=== PATIENT | male | born 1940 | race Caucasian/White ===

== ENCOUNTER 2023-12-23 16:06 | Inpatient (IN) ==
[2023-12-23 17:03] LABS: Basophils # (Auto) 0.04 K/mcL (0.00-0.30); Basophils % (Auto) 0.5 % (0.0-2.0); Eosinophils # (Auto) 0.03 K/mcL (0.00-0.70); Eosinophils % (Auto) 0.4 % (0.0-7.0); Hematocrit 37.6 % (40.1-51.0); Hemoglobin 12.4 g/dL (13.7-17.5); Lymphocytes # (Auto) 0.69 K/mcL (1.50-4.80); Lymphocytes % (Auto) 9.2 % (15.5-49.0); Mean Cell Volume 99.2 fL (80.0-100.0); Mean Platelet Volume 8.5 fL (8.8-12.5); Monocytes # (Auto) 0.35 K/mcL (0.10-0.90); Monocytes % (Auto) 4.7 % (1.0-12.0); Neutrophils % (Auto) 84.9 % (38.0-78.0); Platelet Count 195 K/mcL (140-440); RBC 3.79 M/mcL (4.63-6.08); Red Cell Distribution Width 13.4 % (11.5-14.5); WBC 7.5 K/mcL (4.5-11.0)
[2023-12-23 17:41] LABS: ALT/SGPT < 5 U/L (0-40); AST/SGOT 18 U/L (<40); Albumin 4.2 gm/dL (3.2-5.2); Albumin/Globulin Ratio 1.8 (1.0-2.3); Alkaline Phosphatase 57 U/L (39-117); Bilirubin,Total 0.5 mg/dL (0.1-1.0); Blood Urea Nitrogen 41 mg/dL (8-23); Carbon Dioxide 22 mmol/L (22-30); Chloride 105 mmol/L (96-108); Globulin 2.4 gm/dL (2.2-3.7); Glomerular Filtration Rate 36; Glucose 104 mg/dL (70-105)
[2023-12-23] MEDS: fentaNYL 100 MCG/2 ML VIAL IV PRN (17:45)
[2023-12-23 18:27] LABS: INR 1.1 (0.9-1.1); Prothrombin Time 14.5 sec (11.9-14.5)
[2023-12-23] MEDS ORDERED: hydrALAZINE 20 MG/ML VIAL IV PRN (18:45)
[2023-12-23] MEDS ORDERED: ONDANSETRON 4 MG/2 ML VIAL IV PRN (18:45)
[2023-12-23] MEDS ORDERED: IPRATROPIUM/ALBUTEROL 3 ML AMPUL.NEB NEB PRN (18:45)
[2023-12-23] MEDS: HYDROmorphone 1 MG/ML SYRINGE IV PRN (18:52)
[2023-12-23] MEDS: 0.9 % SODIUM CHLORIDE 1,000 ML IV SCH (20:57)
[2023-12-23] MEDS: DOCUSATE SODIUM 100 MG CAPSULE PO SCH (21:02)
[2023-12-23] MEDS: SENNOSIDES 1 TABLET PO SCH (21:02)
[2023-12-23] MEDS: ceFAZolin 2 GM in DEXTROSE 5% IN WATER 50 ML IV SCH (21:02)
[2023-12-23] MEDS: 0.9 % SODIUM CHLORIDE 10 ML SYRINGE IV SCH (21:03)
[2023-12-23 22:44] LABS: Appearance,Urine Clear (Clear); Bacteria,Urine 0 /hpf (0); Bilirubin,Urine Negative (Negative); Color,Urine Yellow; Culture Indicated,Urine No; Glucose,Urine (UA) Negative (Negative); Ketones,Urine Negative (Negative); Leukocyte Esterase,Urine Trace /uL (Negative); Nitrate,Urine Negative (Negative); Protein,Urine Negative (Negative); Specific Gravity,Urine 1.015 (1.000-1.035); Urine Blood Negative ery/mcL (Negative); Urine Hyaline Cast 2 /lph (0-2); Urine RBC 1 /hpf (0-3); Urine Squamous Epithelial Cell 0 /hpf (0-4); Urine WBC 1 /hpf (0-4); Urobilinogen,Urine Normal
[2023-12-23] MEDS: traZODone HCL 50 MG TABLET PO PRN (23:24)
[2023-12-24 05:44] LABS: Basophils # (Auto) 0.03 K/mcL (0.00-0.30); Basophils % (Auto) 0.3 % (0.0-2.0); Eosinophils # (Auto) 0.05 K/mcL (0.00-0.70); Eosinophils % (Auto) 0.6 % (0.0-7.0); Hematocrit 37.1 % (40.1-51.0); Lymphocytes % (Auto) 8.1 % (15.5-49.0); Mean Cell Volume 100.8 fL (80.0-100.0); Mean Corpuscular HGB Conc 32.3 g/dL (31.0-36.0); Mean Platelet Volume 8.3 fL (8.8-12.5); Monocytes # (Auto) 0.66 K/mcL (0.10-0.90); Monocytes % (Auto) 7.7 % (1.0-12.0); Neutrophils % (Auto) 83.1 % (38.0-78.0); Platelet Count 186 K/mcL (140-440); RBC 3.68 M/mcL (4.63-6.08); Red Cell Distribution Width 13.4 % (11.5-14.5); WBC 8.6 K/mcL (4.5-11.0)
[2023-12-24] MEDS: oxyCODONE IR 5 MG TABLET PO PRN (06:00)
[2023-12-24 06:28] LABS: ALT/SGPT 6 U/L (<40); AST/SGOT 17 U/L (<40); Albumin/Globulin Ratio 1.7 (1.0-2.3); Alkaline Phosphatase 57 U/L (39-117); Bilirubin,Total 0.4 mg/dL (0.1-1.0); Blood Urea Nitrogen 36 mg/dL (8-23); Calcium 8.9 mg/dL (8.6-10.4); Carbon Dioxide 22 mmol/L (22-30); Chloride 104 mmol/L (96-108); Globulin 2.3 gm/dL (2.2-3.7); Glomerular Filtration Rate 39; Glucose 105 mg/dL (70-105)
[2023-12-24] MEDS: HYDROmorphone 1 MG/ML SYRINGE IV PRN (11:06)
[2023-12-24] MEDS ORDERED: CARBIDOPA LEVODOPA PO SCH (15:00)
[2023-12-24] MEDS ORDERED: SERTRALINE 50 MG TABLET PO SCH (15:00)
[2023-12-24] MEDS ORDERED: DEXAMETHASONE 10 MG/ML VIAL ONE (15:40)
[2023-12-24] MEDS ORDERED: PROPOFOL 200 MG/20 ML VIAL IV ONE (15:40)
[2023-12-24] MEDS ORDERED: ONDANSETRON 4 MG/2 ML VIAL ONE (15:40)
[2023-12-24] MEDS ORDERED: LIDOCAINE 2% PF 5 ML VIAL ONE (15:40)
[2023-12-24] MEDS ORDERED: KETAMINE 50 MG/ML Syringe IV ONE (15:41)
[2023-12-24] MEDS ORDERED: MAGNESIUM SULFATE 2 GM/50 ML BAG IV ONE (15:42)
[2023-12-24] MEDS: ceFAZolin 2 GM in DEXTROSE 5% IN WATER 50 ML IV SCH (16:10)
[2023-12-24] MEDS ORDERED: TRANEXAMIC ACID 1,000 MG/10 ML VIAL ONE (16:17)
[2023-12-24] MEDS ORDERED: HYDROmorphone 1 MG/ML SYRINGE IV PRN (16:20)
[2023-12-24] MEDS ORDERED: ACETAMINOPHEN 325 MG TABLET PO PRN (16:20)
[2023-12-24] MEDS ORDERED: BENZOCAINE/MENTHOL 1 LOZENGE PO PRN (16:20)
[2023-12-24] MEDS ORDERED: HYDROmorphone 1 MG/ML SYRINGE ONE (16:52)
[2023-12-24] MEDS ORDERED: fentaNYL 100 MCG/2 ML VIAL IV PRN (17:05)
[2023-12-24] MEDS ORDERED: ONDANSETRON 4 MG/2 ML VIAL IV PRN (17:05)
[2023-12-24] MEDS ORDERED: IPRATROPIUM/ALBUTEROL 3 ML AMPUL.NEB NEB PRN (17:05)
[2023-12-24] MEDS: TRANEXAMIC ACID 1,000 MG/10 ML VIAL IV SCH (17:40)
[2023-12-24] MEDS: oxyCODONE/APAP 5/325MG TABLET PO PRN (18:18)
[2023-12-24] MEDS: 0.9 % SODIUM CHLORIDE 1,000 ML IV SCH (18:31)
[2023-12-24] MEDS: CARBIDOPA LEVODOPA PO SCH (20:10)
[2023-12-24] MEDS: SERTRALINE 50 MG TABLET PO SCH (20:11)
[2023-12-24] MEDS: 0.45 % SODIUM CHLORIDE 1,000 ML IV SCH (20:23)
[2023-12-24] MEDS: LACTATED RINGERS 1,000 ML IV SCH (20:23)
[2023-12-24] MEDS: WATER IV SCH (20:33)
[2023-12-24] MEDS: DEXTROSE IV SCH (20:33)
[2023-12-24] MEDS: SODIUM CHLORIDE IV SCH (20:33)
[2023-12-24] MEDS ORDERED: TEMAZEPAM 15 MG CAPSULE PO PRN (21:00)
[2023-12-24] MEDS: 0.9 % SODIUM CHLORIDE 10 ML SYRINGE IV SCH (22:10)
[2023-12-24] MEDS: ceFAZolin 1 GM VIAL IV SCH (23:04)
[2023-12-25] MEDS ORDERED: 0.9 % SODIUM CHLORIDE 1,000 ML IV SCH (02:45)
[2023-12-25 03:22] LABS: Basophils # (Auto) 0.01 K/mcL (0.00-0.30); Basophils % (Auto) 0.1 % (0.0-2.0); Eosinophils # (Auto) 0 K/mcL (0.00-0.70); Eosinophils % (Auto) 0 % (0.0-7.0); Hematocrit 35.5 % (40.1-51.0); Hemoglobin 11.5 g/dL (13.7-17.5); Lymphocytes % (Auto) 6.9 % (15.5-49.0); Mean Cell Volume 100.6 fL (80.0-100.0); Mean Corpuscular HGB Conc 32.4 g/dL (31.0-36.0); Monocytes # (Auto) 0.72 K/mcL (0.10-0.90); Monocytes % (Auto) 6.2 % (1.0-12.0); Neutrophils % (Auto) 86.5 % (38.0-78.0); Platelet Count 203 K/mcL (140-440); RBC 3.53 M/mcL (4.63-6.08); Red Cell Distribution Width 13.4 % (11.5-14.5); WBC 11.5 K/mcL (4.5-11.0)
[2023-12-25 03:44] LABS: ALT/SGPT < 5 U/L (<40); AST/SGOT 26 U/L (<40); Albumin 3.9 gm/dL (3.2-5.2); Albumin/Globulin Ratio 1.6 (1.0-2.3); Alkaline Phosphatase 58 U/L (39-117); Bilirubin,Total 0.5 mg/dL (0.1-1.0); Blood Urea Nitrogen 31 mg/dL (8-23); Calcium 8.5 mg/dL (8.6-10.4); Carbon Dioxide 15 mmol/L (22-30); Chloride 102 mmol/L (96-108); Globulin 2.4 gm/dL (2.2-3.7); Glomerular Filtration Rate 36; Glucose 213 mg/dL (70-105)
[2023-12-25] MEDS: OMEPRAZOLE 20 MG CAPSULE PO SCH (06:55)
[2023-12-25 07:35] LABS: Basophils # (Auto) 0.01 K/mcL (0.00-0.30); Basophils % (Auto) 0.1 % (0.0-2.0); Eosinophils # (Auto) 0 K/mcL (0.00-0.70); Eosinophils % (Auto) 0 % (0.0-7.0); Hematocrit 34.3 % (40.1-51.0); Hemoglobin 11.2 g/dL (13.7-17.5); Lymphocytes # (Auto) 0.49 K/mcL (1.50-4.80); Lymphocytes % (Auto) 3.8 % (15.5-49.0); Mean Cell Volume 102.1 fL (80.0-100.0); Mean Corpuscular HGB Conc 32.7 g/dL (31.0-36.0); Mean Platelet Volume 9.1 fL (8.8-12.5); Monocytes # (Auto) 1.18 K/mcL (0.10-0.90); Monocytes % (Auto) 9.1 % (1.0-12.0); Neutrophils % (Auto) 86.8 % (38.0-78.0); Platelet Count 182 K/mcL (140-440); RBC 3.36 M/mcL (4.63-6.08); Red Cell Distribution Width 13.3 % (11.5-14.5); WBC 12.9 K/mcL (4.5-11.0)
[2023-12-25 07:50] LABS: ALT/SGPT < 5 U/L (<40); AST/SGOT 31 U/L (<40); Albumin 3.9 gm/dL (3.2-5.2); Albumin/Globulin Ratio 1.7 (1.0-2.3); Alkaline Phosphatase 57 U/L (39-117); Bilirubin,Direct < 0.2 mg/dL (0-0.3); Bilirubin,Total 0.6 mg/dL (0.1-1.0); Blood Urea Nitrogen 30 mg/dL (8-23); Calcium 8.5 mg/dL (8.6-10.4); Carbon Dioxide 21 mmol/L (22-30); Chloride 102 mmol/L (96-108); Globulin 2.3 gm/dL (2.2-3.7); Glomerular Filtration Rate 42; Glucose 149 mg/dL (70-105); Lactate Dehydrogenase 175 U/L (135-225); Phosphorous 3.1 mg/dL (2.5-4.5); Triglycerides 77 mg/dL (<150); Uric Acid 3.5 mg/dL (2.5-8.0)
[2023-12-25] MEDS ORDERED: VIT A,C & E/LUTEIN/MINERALS TABLET PO SCH (09:00)
[2023-12-25] MEDS ORDERED: HYDROCHLOROTHIAZIDE 12.5 MG CAPSULE PO SCH (09:00)
[2023-12-25] MEDS ORDERED: ACETAMINOPHEN 500 MG TABLET PO SCH (09:00)
[2023-12-25] MEDS: LISINOPRIL 20 MG TABLET PO SCH (09:22)
[2023-12-25] MEDS: ALLOPURINOL 300 MG TABLET PO SCH (09:22)
[2023-12-25] MEDS: KETOROLAC 15 MG/ML VIAL IV PRN (09:30)
[2023-12-25] MEDS: ACETAMINOPHEN 325 MG TABLET PO PRN (09:32)
[2023-12-25] MEDS ORDERED: oxyCODONE/APAP 5/325MG TABLET PO PRN (11:28)
[2023-12-25] MEDS: 0.9 % SODIUM CHLORIDE 250 ML IV ONE ×2 (12:24→14:32)
[2023-12-26 07:42] LABS: Basophils # (Auto) 0.02 K/mcL (0.00-0.30); Basophils % (Auto) 0.1 % (0.0-2.0); Eosinophils # (Auto) 0.01 K/mcL (0.00-0.70); Eosinophils % (Auto) 0.1 % (0.0-7.0); Hematocrit 31.2 % (40.1-51.0); Hemoglobin 10.3 g/dL (13.7-17.5); Lymphocytes # (Auto) 0.78 K/mcL (1.50-4.80); Lymphocytes % (Auto) 5.8 % (15.5-49.0); Neutrophils % (Auto) 84.7 % (38.0-78.0); Platelet Count 163 K/mcL (140-440); RBC 3.12 M/mcL (4.63-6.08); Red Cell Distribution Width 13.4 % (11.5-14.5); WBC 13.4 K/mcL (4.5-11.0)
[2023-12-26 09:27] LABS: Lymphocytes % 4 % (15-49); Monocytes % (Manual) 11 % (1-12); Platelet Estimate NORMAL (Normal); RBC Morphology NORMAL (Normal); Segmented Neutrophils % 85 % (38-78)
[2023-12-26 11:54] LABS: Appearance,Urine Clear (Clear); Bacteria,Urine Rare /hpf (0); Bilirubin,Urine Negative (Negative); Color,Urine Amber; Culture Indicated,Urine Yes; Glucose,Urine (UA) Negative (Negative); Ketones,Urine 5(Trace) mg/dL (Negative); Leukocyte Esterase,Urine Negative /uL (Negative); Nitrate,Urine Negative (Negative); Protein,Urine 30 mg/dL (Negative); Urine Blood Trace ery/mcL (Negative); Urine Hyaline Cast 1 /lph (0-2); Urine RBC 3 /hpf (0-3); Urine Squamous Epithelial Cell 0 /hpf (0-4); Urine WBC 0 /hpf (0-4); Urobilinogen,Urine Normal
[2023-12-26] MEDS: cefTRIAXone 1 GM VIAL IV SCH (12:07)
[2023-12-26] MEDS: ASPIRIN 81 MG TAB.CHEW PO ONE (12:08)
[2023-12-26] MEDS: ASPIRIN 325 MG ENTERIC COATED TABLET PO ONE (12:08)
[2023-12-26] MEDS: CARBIDOPA LEVODOPA PO ONE (15:34)
[2023-12-26] MEDS: ASPIRIN 81 MG TAB.CHEW CHEWED SCH (21:03)
[2023-12-26] MEDS: CARBIDOPA LEVODOPA PO SCH (21:07)
[2023-12-27 08:33] LABS: Basophils # (Auto) 0.04 K/mcL (0.00-0.30); Basophils % (Auto) 0.3 % (0.0-2.0); Eosinophils # (Auto) 0.15 K/mcL (0.00-0.70); Eosinophils % (Auto) 1.1 % (0.0-7.0); Hematocrit 30.1 % (40.1-51.0); Lymphocytes # (Auto) 0.83 K/mcL (1.50-4.80); Lymphocytes % (Auto) 6.3 % (15.5-49.0); Mean Cell Volume 101.3 fL (80.0-100.0); Mean Corpuscular HGB Conc 33.2 g/dL (31.0-36.0); Mean Platelet Volume 9.2 fL (8.8-12.5); Monocytes # (Auto) 1.16 K/mcL (0.10-0.90); Monocytes % (Auto) 8.8 % (1.0-12.0); Platelet Count 199 K/mcL (140-440); RBC 2.97 M/mcL (4.63-6.08); Red Cell Distribution Width 13.4 % (11.5-14.5); WBC 13.2 K/mcL (4.5-11.0)
[2023-12-27] MEDS ORDERED: hydrALAZINE 20 MG/ML VIAL IV PRN (09:27)
[2023-12-27] MEDS: LISINOPRIL 10 MG TABLET PO SCH (10:04)
[2023-12-27] MEDS: CARBIDOPA LEVODOPA PO SCH (11:42)
[2023-12-28 06:28] LABS: Basophils # (Auto) 0.03 K/mcL (0.00-0.30); Basophils % (Auto) 0.3 % (0.0-2.0); Eosinophils # (Auto) 0.15 K/mcL (0.00-0.70); Eosinophils % (Auto) 1.3 % (0.0-7.0); Hematocrit 29.4 % (40.1-51.0); Hemoglobin 9.6 g/dL (13.7-17.5); Lymphocytes # (Auto) 0.63 K/mcL (1.50-4.80); Lymphocytes % (Auto) 5.5 % (15.5-49.0); Mean Corpuscular HGB Conc 32.7 g/dL (31.0-36.0); Monocytes # (Auto) 0.89 K/mcL (0.10-0.90); Monocytes % (Auto) 7.8 % (1.0-12.0); Neutrophils % (Auto) 84.6 % (38.0-78.0); Platelet Count 219 K/mcL (140-440); RBC 2.91 M/mcL (4.63-6.08); Red Cell Distribution Width 13.1 % (11.5-14.5); WBC 11.4 K/mcL (4.5-11.0)
[2023-12-28] MEDS: LISINOPRIL 5 MG TABLET PO SCH (08:41)
[2023-12-28] MEDS: POLYETHYLENE GLYCOL 3350 17 GM PACKET PO SCH (11:15)
[2023-12-28] MEDS: BISACODYL 10 MG SUPP.RECT PR SCH (11:15)
== END 2023-12-28 13:35 | DRG 522 ==
LOC: ED 16:06 → MEDSUR 18:44
PROVIDERS: ADMIT Internal Medicine; ATTEND Internal Medicine
PROC: HEMIHIP (2023-12-24 16:14)